=== PATIENT | male | born 1955 | race Caucasian/White ===

== ENCOUNTER 2019-04-17 13:53 | Observation (INO) ==
[2019-04-17 14:50] LABS: Hematocrit 45.2 % (37.5-50.1); Hemoglobin 15.1 g/dL (12.9-16.9); Mean Corpuscular HGB Conc 33.4 g/dL (31.6-35.5); Mean Corpuscular Hemoglobin 29.7 pg (28.0-33.3); Mean Platelet Volume 9.2 fL (9.4-12.4); Platelet Count 259 K/mcL (140-400); Red Blood Count 5.08 M/mcL (4.19-5.50); Red Cell Distribution Width 12.7 % (11.5-14.5)
[2019-04-17 14:54] LABS: Prothrombin Time 11.8 Seconds (9.4-12.1)
[2019-04-17 14:57] LABS: Activated Partial Thrombo Time 34.9 Seconds (26.0-36.0)
[2019-04-17 15:10] LABS: BUN/Creatinine Ratio 14 (6-26); Blood Urea Nitrogen 20 mg/dL (8-23); Calcium 10.1 mg/dL (8.6-10.3); Carbon Dioxide 27 mEq/L (23-29); Chloride 102 mEq/L (98-107); Glucose 108 mg/dL (70-105); Osmolality,Calculated 293 (280-300); Potassium 4.2 mEq/L (3.5-5.1); Sodium 140 mEq/L (136-145); Troponin I < 0.03 ng/mL (< 0.04); eGFR For African Americans > 60 (> 60); eGFR For Non-African Americans 52 (> 60)
[2019-04-17] MEDS ORDERED: *HR* FentaNYL (PF) 100 MCG/2 ML VIAL IVP ONE (15:14)
[2019-04-17] MEDS ORDERED: 0.9 % Sodium Chloride 1,000 ML IVC ONE (15:14)
[2019-04-17 15:54] LABS: Amphetamine Screen,Urine Positive ng/mL (Cutoff=1000); Barbiturate Screen,Urine Negative ng/mL (Cutoff=200); Benzodiazepines Screen,Urine Negative ng/mL (Cutoff=200); Cannabinoid Screen,Urine Negative ng/mL (Cutoff = 50); Cocaine Screen,Urine Negative ng/mL (Cutoff= 300); Opiate Screen,Urine Negative ng/mL (Cutoff=300); Phencyclidine Screen,Urine Negative ng/mL (Cutoff=25)
[2019-04-17 15:55] LABS: Bilirubin,Urine Negative (Negative); Blood,Urine Negative (Negative); Clarity,Urine Clear (Clear); Color,Urine Yellow (Yellow); Glucose,Urine (UA) Normal (Normal); Ketones,Urine Trace mg/dL (Negative); Leukocyte Esterase,Urine Negative (Negative); Nitrite,Urine Negative (Negative); PH,Urine 6.5 pH Units (5.0-8.0); Protein,Urine Negative (Neg-Trace); Specific Gravity,Urine 1.019 (1.010-1.025); Urobilinogen,Urine Normal (Normal)
[2019-04-17] MEDS ORDERED: Naloxone 0.4 MG/ML INJ IVP PRN (17:14)
[2019-04-17] MEDS ORDERED: 0.9 % Sodium Chloride 1,000 ML IVC SCH (17:45)
[2019-04-17] MEDS ORDERED: *HR* Labetalol 20 MG/4 ML SYRINGE IVP PRN (17:48)
[2019-04-17 18:34] LABS: Acetaminophen < 10 mcg/mL (10-20); Alanine Aminotransferase 11 Units/L (7-52); Albumin 3.9 g/dL (3.5-5.7); Albumin/Globulin Ratio 2.2 (1.1-2.2); Alkaline Phosphatase 51 Units/L (34-104); Aspartate Amino Transferase 20 Units/L (13-39); Bilirubin,Direct 0.3 mg/dL (0.0-0.2); Bilirubin,Indirect 0.8 mg/dL (0.0-1.0); Bilirubin,Total 1.1 mg/dL (0.3-1.0); Creatine Kinase 300 Units/L (30-223); Globulin 1.8 g/dL (2.4-3.5); Salicylate < 2.5 mg/dL (15.0-30.0); Total Protein 5.7 g/dL (6.4-8.9)
[2019-04-17 18:35] LABS: Ethanol < 10 mg/dL (Less than 10); Glucose 90 mg/dL (70-105)
[2019-04-17 18:43] LABS: Procalcitonin 0.11 ng/mL (0.00-0.15)
[2019-04-17 18:50] LABS: Thyroid Stimulating Hormone 0.982 mcIU/mL (0.340-5.600)
[2019-04-17 19:40] LABS: Mixed Venous Blood pCO2 50 mmHg (44-46); Mixed Venous Blood pH 7.36 pH Units (7.34-7.36); Mixed Venous Blood pO2 24 mmHg (35-45)
[2019-04-17] MEDS: Acyclovir 800 MG in D5% in Water 250 ML IVPB SCH (21:02)
[2019-04-17] MEDS: *HR* LORazepam 0.5 MG TABLET PO PRN (22:16)
[2019-04-18] MEDS ORDERED: ACYCLOVIR IVPB SCH
[2019-04-18] MEDS ORDERED: LOK IVPB SCH
[2019-04-18] MEDS: Ampicillin 2 GM in 0.9 % Sodium Chloride Mini Bag 100 ML IVPB SCH ×5 (00:04→12:40)
[2019-04-18] MEDS: cefTRIAXone 2,000 MG in 0.9 % Sodium Chloride Mini Bag 100 ML IVPB SCH ×2 (00:40→09:10)
[2019-04-18] MEDS: Methocarbamol 500 MG TABLET PO SCH ×2 (00:41→09:10)
[2019-04-18] MEDS: Acyclovir 800 MG in D5% in Water 250 ML IVPB SCH (04:32)
[2019-04-18 06:44] LABS: Basophils # 0.1 K/mcL (0.0-0.2); Basophils % 0.8 %; Eosinophils # 0.3 K/mcL (0.0-0.6); Eosinophils % 3.4 %; Hematocrit 37.6 % (37.5-50.1); Immature Granulocytes % 0.1 % (0-4); Lymphocytes % 30.4 %; Mean Corpuscular Hemoglobin 29.2 pg (28.0-33.3); Mean Corpuscular Volume 85.6 fL (83.0-100.0); Mean Platelet Volume 8.9 fL (9.4-12.4); Monocytes # 0.8 K/mcL (0.0-1.3); Monocytes % 11.3 %; Platelet Count 224 K/mcL (140-400); Red Blood Count 4.39 M/mcL (4.19-5.50); Red Cell Distribution Width 12.6 % (11.5-14.5)
[2019-04-18 06:48] LABS: Hemoglobin 12.8 g/dL (12.9-16.9); Lymphocytes # 2.3 K/mcL (0.6-4.6); White Blood Count 7.4 K/mcL (4.3-11.1)
[2019-04-18 06:57] LABS: BUN/Creatinine Ratio 11 (6-26); Blood Urea Nitrogen 15 mg/dL (8-23); Calcium 8.5 mg/dL (8.6-10.3); Carbon Dioxide 27 mEq/L (23-29); Chloride 106 mEq/L (98-107); Glucose 115 mg/dL (70-105); Osmolality,Calculated 288 (280-300); Potassium 3.6 mEq/L (3.5-5.1); Sodium 138 mEq/L (136-145); eGFR For African Americans > 60 (> 60); eGFR For Non-African Americans 54 (> 60)
[2019-04-18] MEDS: Venlafaxine XR (24 HR) 75 MG CAP.ER.24H PO SCH (09:10)
[2019-04-18] MEDS: Aspirin Enteric Coated 325 MG Tablet PO SCH (09:10)
[2019-04-18] MEDS: Lisinopril-HCTZ 20-12.5mg TABLET PO SCH (09:11)
[2019-04-18] MEDS: Cholecalciferol (D-3) 1,000 UNIT (25MCG) TABLET PO SCH (09:11)
[2019-04-18] MEDS ORDERED: 0.9 % Sodium Chloride 1,000 ML IVC SCH (09:30)
[2019-04-18] MEDS: *HR* LORazepam 0.5 MG TABLET PO PRN (11:08)
[2019-04-18] MEDS: WATER IVPB SCH ×2 (12:40→21:14)
[2019-04-18] MEDS: ACYCLOVIR IVPB SCH ×2 (12:40→21:14)
[2019-04-18] MEDS: D5 IVPB SCH ×2 (12:40→21:14)
[2019-04-18] MEDS ORDERED: *HR* LORazepam 2 MG/ML VIAL IVP PRN ×3 (14:53)
[2019-04-18 15:06] LABS: Red Blood Cell,CSF < 0.002 M/mcL
[2019-04-18 15:13] LABS: Glucose,CSF 64 mg/dL (40-70); Total Protein,CSF 69 mg/dL (15-45)
[2019-04-18 15:20] LABS: Appearance,CSF Clear (Clear)
[2019-04-18] MEDS ORDERED: Aminoglycoside Consult 1 EACH MC ONE (18:04)
[2019-04-18] MEDS: Gabapentin 300 MG CAPSULE PO SCH (21:15)
[2019-04-19] MEDS: ACYCLOVIR IVPB SCH (05:00)
[2019-04-19] MEDS: WATER IVPB SCH (05:00)
[2019-04-19] MEDS: D5 IVPB SCH (05:00)
[2019-04-19 06:19] LABS: Basophils % 0.6 %; Eosinophils # 0.2 K/mcL (0.0-0.6); Eosinophils % 4.4 %; Hematocrit 37.5 % (37.5-50.1); Immature Granulocytes % 0.2 % (0-4); Lymphocytes # 1.6 K/mcL (0.6-4.6); Lymphocytes % 31.2 %; Mean Corpuscular HGB Conc 34.7 g/dL (31.6-35.5); Mean Corpuscular Hemoglobin 29.3 pg (28.0-33.3); Mean Corpuscular Volume 84.5 fL (83.0-100.0); Mean Platelet Volume 9.1 fL (9.4-12.4); Monocytes # 0.6 K/mcL (0.0-1.3); Monocytes % 11.1 %; Neutrophils # 2.6 K/mcL (1.6-8.9); Platelet Count 215 K/mcL (140-400); Red Blood Count 4.44 M/mcL (4.19-5.50); Red Cell Distribution Width 12.5 % (11.5-14.5); Segmented Neutrophils % 52.5 %
[2019-04-19 06:39] LABS: BUN/Creatinine Ratio 11 (6-26); Blood Urea Nitrogen 13 mg/dL (8-23); Calcium 8.6 mg/dL (8.6-10.3); Carbon Dioxide 28 mEq/L (23-29); Chloride 106 mEq/L (98-107); Glucose 118 mg/dL (70-105); Osmolality,Calculated 291 (280-300); Potassium 3.7 mEq/L (3.5-5.1); Sodium 140 mEq/L (136-145); eGFR For African Americans > 60 (> 60); eGFR For Non-African Americans > 60 (> 60)
[2019-04-19 08:16] VITALS: BP 137/75
[2019-04-19] MEDS: Venlafaxine XR (24 HR) 75 MG CAP.ER.24H PO SCH (09:01)
[2019-04-19] MEDS: Aspirin Enteric Coated 325 MG Tablet PO SCH (09:01)
[2019-04-19] MEDS: Cholecalciferol (D-3) 1,000 UNIT (25MCG) TABLET PO SCH (09:02)
[2019-04-19] MEDS: Gabapentin 300 MG CAPSULE PO SCH (09:02)
[2019-04-19] MEDS: Lisinopril-HCTZ 20-12.5mg TABLET PO SCH (09:02)
[2019-04-19] MEDS ORDERED: FLU Vac QV 19-20 (6Month+)/PF 0.5 ML SYRINGE IM ONE (11:58)
[2019-04-22 10:45] LABS: HSV 2 Glycoprotein G IgG 0.07 IV (<=0.90)
[2019-04-22 10:50] LABS: HSV 1 Glycoprotein G IgG CSF 0.16 IV (<=0.89); HSV 2 Glycoprotein G IgG CSF 0.01 IV (<=0.89)
== END 2019-04-19 12:42 | disposition home or self-care (01) ==
LOC: EMEROOARM 13:53 → 2ANU 13:53 → SUATTDRO 18:03 → 2ANU 19:43
PROVIDERS: ADMIT Internal Medicine; ATTEND Family Medicine